=== PATIENT | female | born 1995 | race Caucasian/White ===

== ENCOUNTER 2016-10-16 20:01 | Emergency (ER) | payer OTHER ==
[~2016-10-16] VITALS: Ht 157.5 cm; Wt 49.9 kg
[2016-10-16 20:05] VITALS: BP 124/80
[2016-10-16] MEDS ORDERED: PRED50TA PO (20:39)
[2016-10-16] MEDS ORDERED: AZIT250T PO (20:39)
--- NOTE | 2016-10-16 20:40 | PHYS DOC ---
Past History Past Medical History: Asthma Past Surgical History: No Surgical History Alcohol Use: None Drug Use: None Adult General Chief Complaint Chief Complaint: CHEST PAIN HPI HPI 20-year-old female with a past medical history of asthma status post recent pulmonary infection earlier this month for which she was prescribed an antibiotic twice a day for 10 days. Patient now presents to the emergency department because of persistent cough which is worse at night when laying down. Patient states this cough of just not resolve. It's nonproductive and completely dry. She has no fevers chills sweats or shaking chills. No headache or stiff neck. She has no chest pain. Her left chest wall is sore with palpation and when she coughs. Patient denies pleuritic pain or shortness of breath. Her pulses normal she does not perceive any palpitations or tachycardia. No other complaints Review of Systems Review of Systems Constitutional: Denies fever or chills [] Eyes: Denies change in visual acuity, redness, or eye pain [] HENT: Denies nasal congestion or sore throat [] Respiratory: Denies cough or shortness of breath [] Cardiovascular: No additional information not addressed in HPI [] GI: Denies abdominal pain, nausea, vomiting, bloody stools or diarrhea [] : Denies dysuria or hematuria [] Musculoskeletal: Denies back pain or joint pain [] Integument: Denies rash or skin lesions [] Neurologic: Denies headache, focal weakness or sensory changes [] Endocrine: Denies polyuria or polydipsia [] Physical Exam Physical Exam Review amount no acute distress smiling, clear lungs regular rate and rhythm supple neck mild left chest wall tenderness easily reproducible light palpation. Left axillary distribution with no adenopathy soft tissue swelling or focal tenderness no bony tenderness normal bilateral upper extremities. No subcutaneous air skin changes.*Benign exam Constitutional: Well developed, well nourished, no acute distress, non-toxic appearance. [] HENT: Normocephalic, atraumatic, bilateral external ears normal, oropharynx moist, no oral exudates, nose normal. [] Eyes: PERRLA, EOMI, conjunctiva normal, no discharge. [] Neck: Normal range of motion, no tenderness, supple, no stridor. [] Cardiovascular:Heart rate regular rhythm, no murmur [] Lungs & Thorax: Bilateral breath sounds clear to auscultation [] Abdomen: Bowel sounds normal, soft, no tenderness, no masses, no pulsatile masses. [] Skin: Warm, dry, no erythema, no rash. [] Back: No tenderness, no CVA tenderness. [] Extremities: No tenderness, no cyanosis, no clubbing, ROM intact, no edema. [] Neurologic: Alert and oriented X 3, no focal deficits noted. [] Psychologic: Affect normal, judgement normal, mood normal. [] EKG EKG [] Radiology/Procedures Radiology/Procedures Chest x-ray two-view interpreted by me no acute disease benign study. [] Course & Med Decision Making Course & Med Decision Making Pertinent Labs and Imaging studies reviewed. (See chart for details) Signs and symptoms consistent with suspected persistent inflammatory pulmonary process with low-grade symptoms versus possibility of atypical pneumonia. Persistent cough not consistent with pertussis cough is not self-perpetuating and intractable. She is well-appearing with a completely benign exam normal respiratory rate and pulse ox. Chest x-ray PA and lateral done to rule out less likely possibility of structural abnormality or radiographic finding. Results unremarkable. Discussed with patient will cover with Zithromax for possibility of atypical pneumonia as well as steroids for anti-inflammatory benefit. She is aware to use Mucinex DM as needed for cough and follow-up with her primary care doctor in 1-2 days. No further workup or treatment indicated. Patient agrees with outpatient follow-up and strict return precautions given [] Dragon Disclaimer Dragon Disclaimer This chart was dictated in whole or in part using Voice Recognition software in a busy, high-work load, and often noisy Emergency Department environment. It may contain unintended and wholly unrecognized errors or omissions. Departure Departure: Impression: Primary Impression: Atypical pneumonia Additional Impression: Cough Disposition: 01 HOME, SELF-CARE Condition: GOOD Referrals: PCP,UNKNOWN (PCP) Additional Instructions: Symptoms are suggestive of atypical pneumonia. As we discussed this is a low- grade infection that causes a persistent dry cough which will not resolve without certain antibiotic treatment. Be given a course of Zithromax. Finish it as prescribed. We've also given you a prescription for prednisone. Take this once a day with breakfast until finished. This provides a strong anti- inflammatory effect for whatever inflammatory processes precipitating or cough. Also consider [id number] Mucinex DM. This as a mucolytic which helps break up mucus as well as dextromethorphan for cough control. Rest well and drink plenty of fluids. Follow-up with your doctor in 1-2 days and return immediately for new severe or worsening symptoms Scripts Azithromycin (ZITHROMAX) 250 Mg Tablet 1 PKG PO UD, #6 TAB Prov: MARKY MCCONNELL MD 10/16/16 Prednisone (PREDNISONE) 50 Mg Tablet 1 TAB PO DAILY, #5 TAB Prov: MARKY MCCONNELL MD 10/16/16 Problem Qualifiers MARKY MCCONNELL MD Oct 16, 2016 20:40
--- NOTE | 2016-10-17 07:32 | RAD ---
Exam performed: 2 views of the chest. Indication: cough left-sided chest pain Date of Service:10/16/2016 10:26 PM . Comparison : None available. Findings: PA and lateral radiographs of the chest reveal a normal cardiomediastinal contour. The lungs are clear. No pleural fluid is seen. The visualized osseous structures are unremarkable. Impression: Radiographically normal chest.
== END 2016-10-16 21:15 | disposition home or self-care (01) ==
LOC: ER 20:01
DX: J18.9 Pneumonia, unspecified organism (principal); J45.909 Unspecified asthma, uncomplicated
CPT/HCPCS: 71020; 99284

== ENCOUNTER 2017-04-08 12:12 | Emergency (ER) | payer OTHER ==
[~2017-04-08] VITALS: Ht 157.5 cm; Wt 44.5 kg
[~2017-04-08 12:12] MED LIST: AZIT250T PO; PRED50TA PO
[2017-04-08 12:26] VITALS: BP 112/70
[2017-04-08 13:28] LABS: INFLUENZA A PATIENT NEGATIVE (NEGATIVE); INFLUENZA B PATIENT NEGATIVE (NEGATIVE)
[2017-04-08] MEDS ORDERED: OSEL75CA PO (13:46)
--- NOTE | 2017-04-08 13:46 | PHYS DOC ---
Past History Past Medical History: Asthma Past Surgical History: No Surgical History Alcohol Use: Rarely Drug Use: None Adult General Chief Complaint Chief Complaint: FLU SYMPTOM HPI HPI Patient is a 21 year old female who presents with illness. The patient reports 2 day history of sweats/chills, nasal congestion, sore throat, dry cough, body aches. She denies nausea, vomiting, diarrhea, dysuria. She is 14 weeks , receiving care, denies abdominal pain, vaginal bleeding, loss of fluid. She has known exposure to coworkers with influenza. Review of Systems Review of Systems Constitutional: reports sweats & chills Eyes: Denies drainage HENT: reports nasal congestion & sore throat Respiratory: reports cough, denies shortness of breath Cardiovascular: Denies chest pain or edema GI: Denies abdominal pain, nausea, vomiting, or diarrhea : Denies dysuria or hematuria Musculoskeletal: Denies back pain or joint pain Integument: Denies rash Neurologic: Denies headache, focal weakness or sensory changes All other systems were reviewed and found to be within normal limits, except as documented in this note. Allergies Allergies Allergies Coded Allergies Type Severity Reaction Last Updated Verified No Known Drug Allergies 10/16/16 No Physical Exam Physical Exam Constitutional: Well developed, well nourished, no acute distress, non-toxic appearance. HENT: Normocephalic, atraumatic, bilateral external ears normal, oropharynx moist, posterior oropharynx erythematous without tonsillar enlargement/exudate, nose normal. Eyes: conjunctiva normal, no discharge. Neck: supple, no stridor. no meningismus Cardiovascular: RRR, no murmurs, no edema. Lungs & Thorax: LCTAB, no wheezing, no respiratory distress. Abdomen: soft, nontender, nondistended. Skin: Warm, dry, no erythema, no rash. Back: No tenderness. Extremities: No tenderness, no edema. Neurologic: Alert and oriented X 3, no focal deficits noted. Psychologic: Affect normal, judgement normal, mood normal. Current Patient Data Lab Results Laboratory Tests Test 04/08/17 11:52 04/08/17 11:54 Influenza Type A (Rapid) Negative (NEGATIVE) Influenza Type B (Rapid) Negative (NEGATIVE) Group A Streptococcus Rapid Negative (NEGATIVE) EKG EKG [] Radiology/Procedures Radiology/Procedures [] Course & Med Decision Making Course & Med Decision Making Pertinent Labs and Imaging studies reviewed. (See chart for details) Impression presents with flu symptoms after known influenza exposure. Rapid flu and strep were negative here. Discussed with patient. Would at least recommend prophylaxis given exposure and state, however she has flu symptoms. Regardless of negative flu test, will initiate treatment dose of Tamiflu. Recommend rest, hydration, Tylenol for fevers or pain. Follow-up with OB within one to 2 days for additional recommendations, potentially may need to be seen prior to scheduled appointment. Return to the emergency department for high fever, severe shortness of breath or chest pain, uncontrolled vomiting, any otherwise worsening condition. Discharged home in stable condition. [] Dragon Disclaimer Dragon Disclaimer This electronic medical record was generated, in whole or in part, using a voice recognition dictation system. Departure Departure: Impression: Primary Impression: Upper respiratory infection Additional Impression: Exposure to influenza Disposition: HOME, SELF-CARE Condition: STABLE Referrals: JOSE HERNANDEZ MD (PCP) Patient Instructions: Influenza A (H1N1) in , Upper Respiratory Infection, Adult, [id number] Additional Instructions: You were seen in the emergency department today for flu symptoms. Your influenza test and strep test came back negative. As we discussed, patients should be treated with Tamiflu for exposure to influenza or for symptoms of influenza. You have had definite exposure and your symptoms suggest influenza even though your test was negative. Please take the prescribed Tamiflu. Also rest, drink fluids, take Tylenol for pain or fever. Contact your OB today or tomorrow for additional recommendations. They may wish to see you sooner than your regularly scheduled appointment. Return to the emergency department for severe shortness of breath or chest pain, uncontrolled vomiting, any otherwise worsening condition. Scripts Oseltamivir Phosphate (TAMIFLU) 75 Mg Capsule 1 CAP PO BID, #10 CAP Prov: THOMAS CALIX MD 04/08/17 Problem Qualifiers THOMAS CALIX MD Apr 08, 2017 13:46
== END 2017-04-08 12:49 | disposition home or self-care (01) ==
LOC: ER 12:12
DX: O99.511 Diseases of the respiratory system complicating pregnancy, first trimester (principal); Z20.828 Contact with and (suspected) exposure to other viral communicable diseases; J45.909 Unspecified asthma, uncomplicated; Z3A.14 14 weeks gestation of pregnancy
CPT/HCPCS: 87070; 87804; 87880; 99284

== ENCOUNTER 2017-04-11 11:46 | Emergency (ER) | payer OTHER ==
[~2017-04-11 11:46] MED LIST changes: +OSEL75CA PO
[2017-04-11] MEDS ORDERED: ONDANSETRON ODT 4 MG TAB.RAPDIS PO ONE (12:30)
--- NOTE | 2017-04-11 12:44 | PHYS DOC ---
General Chief Complaint: NAUSEA/VOMITING/DIARRHEA Stated Complaint: N/V Time Seen by MD: 11:49 Source: patient, old records Exam Limitations: no limitations Problems: History of Present Illness Initial Comments / to ED complains of nausea/vomitting. Pt is 14 weeks gestation follows with OB, states she was seen here 04/08 with cough/congestion rapid flu/strep tests negative. Pt was prescribed tamiflu due to exposure, since then has had episodic nausea/vomitting "three times today" after taking tamiflu. No focal abdominal pain complaints, no vaginal symptoms, but feeling mildly weak/lightheaded with standing today. No bowel symptoms but decreased urine output today. Denies risks, , FHT 160 bpm. Timing/Duration: other (three days) Severity: moderate Modifying Factors: worse with eating, worse with medication Associated Symptoms: nausea/vomiting Allergies: Coded Allergies: No Known Drug Allergies (Unverified , 10/16/16) Past Medical History Medical History: asthma Surgical History: noncontributory Para: 0 : 1 LMP (Females 10-50): Social History Smoker: non-smoker Alcohol: none Drugs: none Review of Systems Constitutional: denies chills, denies fever, malaise Respiratory: denies cough, denies shortness of breath Cardiovascular: denies chest pain, denies palpitations Gastrointestinal: see HPI Genitourinary: see HPI, denies dysuria, denies frequency, denies hematuria Musculoskeletal: denies back pain, denies joint swelling, denies neck pain Psychiatric/Neurological: see HPI, denies headache, denies numbness, denies paresthesia Hematologic/Lymphatic: denies blood clots, denies easy bleeding, denies easy bruising Physical Exam General Appearance: WD/WN, no apparent distress Eyes: bilateral eye normal inspection, bilateral eye PERRL, bilateral eye EOMI Ear, Nose, Throat: hearing grossly normal, normal ENT inspection (dry membranes ) Neck: non-tender, supple Respiratory: normal breath sounds, no respiratory distress Cardiovascular: normal peripheral pulses, tachycardia Gastrointestinal: normal bowel sounds, non tender, soft, no organomegaly Back: no CVA tenderness Extremities: non-tender, normal inspection, no pedal edema 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 Time in department 1h 57min, will have prolonged ED course with lab delay for UA. Unremarkable workup, nausea and vomiting correlates to Tamiflu intake. I discussed DC'd Tamiflu continue Bactrim follow-up as needed patient is agreeable. Feeling better with Zofran nausea has resolved. Departure Time of Disposition: 13:48 Disposition: 01 HOME, SELF-CARE Diagnosis: Nausea and vomitting, adverse reaction Tamiflu Condition: IMPROVED Patient Instructions: Drug Reaction, GI Intolerance, Medicines During Additional Instructions: Please review the patient education materials given by ED staff. Discontinue tamiflu. Aggressive hydration with gatorade and water. Continue vitamins. Rx: zofran odt Follow up with your doctor Saturday if not better. Return to ED with new or progressive symptoms. SHERRON ESCAMILLA DO Apr 11, 2017 12:44
[2017-04-11] MEDS ORDERED: IV NORMAL SALINE 1,000ML 1,000 ML IV SCH (12:45)
[2017-04-11 12:59] LABS: ALBUMIN 3.8 g/dL (3.4-5.0); ALBUMIN/GLOBULIN RATIO 0.9 (1.0-1.7); CALCIUM 9.3 mg/dL (8.5-10.1); CREATININE 0.8 mg/dL (0.6-1.0); GFR 89.7; POTASSIUM 3.7 mmol/L (3.5-5.1); TOTAL BILIRUBIN 0.6 mg/dL (0.2-1.0); TOTAL PROTEIN 8.2 g/dL (6.4-8.2)
[2017-04-11] MEDS ORDERED: FAMOTIDINE 20 MG/2 ML VIAL IVP ONE (13:00)
[2017-04-11] MEDS ORDERED: ONDA4TAB10 PO (13:48)
[2017-04-11 14:01] LABS: BILIRUBIN,URINE NEG (NEG); CLARITY,URINE CLOUDY; COLOR,URINE AMBER; GLUCOSE,URINE NEG (NEG); NITRITE,URINE NEG (NEG); UROBILINOGEN,URINE 0.2 mg/dL (0.2 mg/dL)
[2017-04-11 14:02] LABS: BACTERIA,URINE FEW /HPF (0-FEW); RBC,URINE OCC /HPF (0-2); SQUAMOUS EPITHELIAL CELL,UR MOD /LPF
[2017-04-11 14:07] VITALS: BP 91/52
== END 2017-04-11 14:08 | disposition home or self-care (01) ==
LOC: ER 11:46
DX: O21.9 Vomiting of pregnancy, unspecified (principal); O9A.211 Injury, poisoning and certain other consequences of external causes complicating pregnancy, first trimester; O99.511 Diseases of the respiratory system complicating pregnancy, first trimester; T37.5X5A Adverse effect of antiviral drugs, initial encounter; J45.909 Unspecified asthma, uncomplicated; Z3A.14 14 weeks gestation of pregnancy; Y92.89 Other specified places as the place of occurrence of the external cause
CPT/HCPCS: 36415; 80053; 81001; 83690; 87086; 96361; 96374; 99284; Q0162; S0028; 96360; J7030